=== PATIENT | male | born 1970 | race Caucasian/White ===

== ENCOUNTER 2016-07-28 18:38 | Inpatient (IN) | payer BC ==
--- NOTE | ~2016-07-28 | HP ---
History And Physical [place] [id number] [facility] [place]. [address] NAME: HAILEY RAMOS : 74 STATUS : ADM IN [facility]#: [id number] AGE: 45 ADM/REG DATE : 07/28/16 MR#: [id number] REPORT SERV DATE: 07/29/16 DICTATED BY: FRANCISCO BAR DATE: 07/29/16 REPORT STATUS : Draft TRANSCRIBED BY: MODL DATE: 07/29/16 DATE OF ADMISSION: 07/28/2016 REASON FOR ADMISSION: Acute stroke. CHIEF COMPLAINT: Left hand weakness and numbness. HISTORY OF PRESENT ILLNESS: This is a 45-year-old gentleman who was essentially previously healthy other than obesity who presented to us after having an acute onset of left upper extremity weakness. He called his physician who resides in [place] for further advice and presented to the emergency room. He is from out [facility] and currently here with his children's tournament. By the time he was seen in the ER, he had mildly elevated blood pressure, findings of acute stroke with no intracranial hemorrhage. He was given tPA and is now currently in the CVICU. Fortunately, most of his deficits has already improved other than some numbness in the left hand. Otherwise, no further complaints, no chest pain. PAST MEDICAL HISTORY: Diabetes, dyslipidemia, and hypertension. MEDICATIONS: None. ALLERGIES: NO KNOWN DRUG ALLERGIES. SOCIAL HISTORY: The patient does not smoke, drink, or do any illicit drug use. 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 Has a very supportive family. FAMILY HISTORY: Other family members with hypertension and prostate cancer. No history of stroke. REVIEW OF SYSTEMS: All pertinent review of systems is reviewed and is otherwise negative. PHYSICAL EXAMINATION: VITAL SIGNS: The patient is currently afebrile, heart rate 80s, respiratory rate normal, oxygen saturation 93% on room air, blood pressure currently 145 systolic. GENERAL: The patient is alert and oriented, no acute distress. HEENT: No carotid bruit, no JVD. NECK: Supple. PULMONARY EXAMINATION: Lungs are clear to auscultation bilaterally. CARDIAC: Regular rate, no murmurs. ABDOMEN EXAMINATION: Soft, nontender, nondistended. EXTREMITIES EXAMINATION: No cyanosis, good capillary refill, peripheral pulses noted in all extremities. NEUROLOGIC EXAMINATION: Everything is quite normal, there is no weakness in the upper extremities bilaterally, patient reports having numbness in the top one-half of his hand. No trapezius muscle weakness. Normal leg weak strength. History And Physical [address] [place]. [address] NAME: HAILEY RAMOS : 74 STATUS : ADM IN PAT#: [id number] AGE: 45 ADM/REG DATE : 07/28/16 MR#: [id number] REPORT SERV DATE: 07/29/16 DICTATED BY: FRANCISCO BAR DATE: 07/29/16 REPORT STATUS : Draft TRANSCRIBED BY: KENYA DATE: 07/29/16 LABORATORY EXAMINATION: White blood cell count 10.6. Good kidney function, cholesterol panel shows an HDL of 44, LDL 81, cholesterol 151, triglycerides 131. Normal liver function tests. Negative troponin. Normal TSH. Imaging: CT scan of the neck and brain showed no significant stenoses, no filling defect in the [place] of [place]. CT scan of the brain shows no intracranial bleeding. MRI of the brain is currently pending. ASSESSMENT AND PLAN: Mr. Ramos is a 45-year-old gentleman with a past medical history noted above, who presents with an acute stroke and is status post tPA. The patient is currently having improvement in his neurological symptoms. We checked a lipid profile which is actually not too significantly of concern; however, he has been started on a high dose Lipitor. We are controlling his blood pressure p.r.n. and also starting him on carvedilol. I spent some time discussing the need for having a heart healthy diet, he already has an appointment to get a polysomnogram, may benefit from a Holter monitor to ensure he does not have atrial fibrillation. Otherwise, we will conduct the standard post stroke orders such as PT, OT, speech therapy, rehabilitation. The patient is to continue ICU level of care over the next 24 hours. Goals of care: The patient is currently full code. HFQ/MODL Francisco Bar MD / [id number] CC: Francisco Bar MD
--- NOTE | ~2016-07-28 | CN ---
Consultation Report [facility] [address] [place]. [address] NAME: HAILEY RAMOS : 74 STATUS : ADM IN PAT#: [id number] AGE: 45 ADM/REG DATE : 07/28/16 MR#: [id number] REPORT SERV DATE: 07/28/16 DICTATED BY: DATE: REPORT STATUS : Draft TRANSCRIBED BY: MODL DATE: 07/28/16 NEUROLOGY CONSULTATION DATE OF CONSULTATION: 07/28/2016 REASON FOR CONSULT: Left upper extremity weakness, concern for acute stroke. HISTORY OF PRESENT ILLNESS: This is a 45-year-old male presented to [facility] secondary to acute onset of left upper extremity weakness with the patient's symptom mostly in the left arm, left hand. The patient reports that since the symptom onset, symptom has improved, however, it has not completely resolved. Also, complains of some numbness in the left upper extremity at the time of symptom onset. The patient's symptoms started at 1700 hours today. The patient otherwise denies similar symptoms in the past and denies any known previous medical problems. He does not take any medications at home. The patient denies any dysarthria, dysphagia, language difficulties, and denies any gait abnormality. Denies any lower extremity involvement of the symptom. The patient denies any visual difficulties. Denies any headache and denies any recent illness, fever, chills, nausea, vomiting, chest pain, or shortness of breath. PAST MEDICAL HISTORY: The patient denies any significant past medical history, specifically denies any history of hypertension, dyslipidemia, or diabetes. FAMILY HISTORY: Significant for prostate cancer. SOCIAL HISTORY: Denies tobacco, alcohol, or recreational drug usage. 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 ALLERGIES: THE PATIENT REPORTS NO KNOWN DRUG ALLERGIES AND DOES NOT TAKE ANY MEDICATIONS AT HOME. REVIEW OF SYSTEMS: Otherwise, negative except for those mentioned in the HPI. PHYSICAL EXAMINATION: VITAL SIGNS: At the time of evaluation, the patient was noted to have vital signs with T-max of 98.2, heart rate of 85, respirations of 20, and blood pressure of 161/111. GENERAL: The patient is a well developed, well nourished, in no acute distress. CARDIOVASCULAR: Regular rate and rhythm. No carotid bruits were otherwise auscultated. PULMONARY: Clear to auscultation bilaterally. NEUROLOGICAL EXAMINATION: Generally, the patient is alert and orientated to person, place, year, and month and follows simple and 2-step commands. No dysarthria or aphasia was otherwise noted at the time of evaluation. Intact registration, intact recall at the time Consultation Report [place] [id number] [place]. [address] NAME: HAILEY RAMOS : 74 STATUS : ADM IN PAT#: [id number] AGE: 45 ADM/REG DATE : 07/28/16 MR#: [id number] REPORT SERV DATE: 07/28/16 DICTATED BY: DATE: REPORT STATUS : Draft TRANSCRIBED BY: MODL DATE: 07/28/16 of evaluation. Intact attention span. Cranial nerves II through XII, pupils equal, round, and reactive to light. Extraocular eye movement was noted to be intact with intact peripheral vision. Symmetrical facial expression and sensation. Midline tongue. Normal palatal movement and symmetrical hearing. The patient demonstrated 5/5 bilateral upper extremity strength proximally with the patient noted to have 4/5 left upper extremity manager ambulatory strength and 5/5 right upper extremity manager ambulatory strength. Decreased fine motor movement especially in the fingers in the left upper extremity. Reports symmetrical sensation bilaterally. 5/5 bilateral lower extremity strength with the patient reports symmetrical sensation in bilateral lower extremity. Normal [id number] examination without ataxia. At the time of evaluation, deep tendon reflex was 2+ throughout. LABORATORY STUDIES: At the time of evaluation demonstrated sodium 143, potassium 3.9, chloride of 106, bicarb of 27, BUN of 11, creatinine of 1.05, glucose of 98, calcium of 8.4. White blood cell count of 10.6, hemoglobin of 15.9, hematocrit of 44.9, and platelet count of 206. CT scan of the head, otherwise demonstrated no acute process. With the CT angiogram of the head demonstrated no perfusion deficits. No proximal vessel clot since CTA of the neck otherwise demonstrated no significant blockage. IMPRESSION: Left upper extremity weakness and concern for possible stroke with improving symptom, but not back to baseline. The patient's NIH Stroke Scale is 0, but still was noted to have significant left upper extremity hand movement difficulties with the patient's symptom onset at 1700 hours. Denies similar symptoms in the past. TPA was given at 1938 hours. We will admit to ICU for monitoring as per protocol MRI of the brain and stroke workup. We will start the patient on atorvastatin 80 mg p.o. q.h.s. RECOMMENDATION: 1. Admit to ICU. 2. Atorvastatin 80 mg p.o. q.h.s. 3. PT/OT. 4. MRI of the brain without contrast. 5. Echocardiogram. 6. Fasting lipid panel and hemoglobin A1c with morning labs. 7. We will keep systolic blood pressure under 185 mmHg. [facility]/MODL Negrito Herrera MD / [id number]
--- NOTE | ~2016-07-28 | DS ---
Discharge Summary [facility] [address] [place]. [address] NAME: HAILEY RAMOS : 74 STATUS : DIS IN PAT#: [id number] AGE: 45 ADM/REG DATE : 07/28/16 MR#: [id number] REPORT SERV DATE: 07/30/16 DICTATED BY: FRANCISCO CEJA DATE: 07/29/16 REPORT STATUS : Draft TRANSCRIBED BY: KENYA DATE: 07/29/16 ADMISSION DATE: 07/28/2016 DISCHARGE DATE: 07/29/2016 ADMISSION DIAGNOSES: Acute stroke. DISCHARGE DIAGNOSES: Acute stroke, hypertension, obesity. HOSPITAL COURSE: The patient was admitted yesterday to the intensive care unit with an acute stroke, he has received tPA and within several hours had resolution of his left upper extremity weakness. At this moment in time, the patient's status is back to normal. We conducted an evaluation of his lipid profile which is noted on the history which is not significantly of concern. His troponins were negative, TSH was normal. His hemoglobin A1c was 5.4. Urine drug test was negative. No signs of infection. At this moment of time, he has completed 24 hours of neuro checks in the intensive care unit, he is to follow up with his primary care physician in [place] for which he is transitioning to a new one. Myself including the neurologists have spoken to him about the need for hypertension control for which we are starting Coreg. Other areas of concern are possible sleep apnea for which he already has an appointment to get a sleep study and also diet and exercise and weight loss is of need. DISPOSITION: The patient is being discharged home, he has a drive to [place], talked about safety and frequent stops to avoid DVTs, to give him some time to recover, we have given him a work release. FOLLOWUP: The patient is to follow up with his primary care physician, testing was noted above. The patient's MRI of the brain for the record was normal. No evidence of any chronic ischemic changes either. MEGAN/KENYA Francisco Ceja MD / [id number] CC: Francisco Ceja MD
[2016-07-28 18:52] LABS: BASOPHILS 0.2 %; BASOPHILS ABSOLUTE 0.02 10/3/uL (0.0-0.16); EOSINOPHILS 3.6 %; EOSINOPHILS ABSOLUTE 0.38 10/3/uL (0.0-0.53); ER CBC TAT 0 Hrs 05 Mins; HEMATOCRIT 44.9 % (40.0-51.0); HEMOGLOBIN 15.9 g/dL (13.6-17.8); IMMATURE GRANULOCYTES 1.3 %; IMMATURE GRANULOCYTES ABSOLUTE 0.14 10/3/uL (0.0-0.11); LYMPHOCYTES 24.2 %; LYMPHOCYTES ABSOLUTE 2.57 10/3/uL (0.67-4.30); MEAN CORPUS HGB CONC 35.4 g/dL (32.0-36.0); MEAN CORPUSCULAR HEMOGLOB 29.2 pg (26.0-34.0); MEAN CORPUSCULAR VOLUME 82.4 fL (80-100); MEAN PLATELET VOLUME 10.3 fL (9.2-13.0); MONOCYTES 7.6 %; MONOCYTES ABSOLUTE 0.81 10/3/uL (0.21-1.20); NEUTROPHILS 63.1 %; NEUTROPHILS ABSOLUTE 6.68 10/3/uL (2.02-8.40); PLATELET COUNT 206 10/3/uL (150-400); RBC DISTRIBUTION WIDTH 13.7 % (12.0-16.0); RED CELL COUNT 5.45 10/6/uL (4.7-6.1); WHITE BLOOD CELLS 10.6 10/3/uL (4.5-10.5)
[2016-07-28 18:53] LABS: MANUAL DIFF NO %
[2016-07-28 18:59] LABS: PARTIAL THROMBO TIME 24.2 SEC (22.5-37.2); PROTIME (NOT ORD) 12.9 SEC (12.0-14.5)
[2016-07-28 19:10] LABS: A/G RATIO 1.2 (0.7-1.9); ALBUMIN 4.1 G/DL (3.5-5.0); ALKALINE PHOSPHATASE 66 U/L (45-117); BUN (BLOOD UREA NITROGEN) 11 MG/DL (6-23); CALCIUM, SERUM 8.4 MG/DL (8.5-10.4); CHLORIDE, SERUM 106 MMOL/L (96-112); CO2 (CARBON DIOXIDE) 27 MMOL/L (24-34); CREATININE 1.05 MG/DL (0.70-1.30); GFR AFRICAN AMERICAN 100 ML/MIN (>=60); GFR NON AFRICAN AMERICAN 87 ML/MIN (>=60); GLOBULIN 3.3 G/DL (2.5-4.1); GLUCOSE, SERUM 98 MG/DL (60-99); POTASSIUM, SERUM 3.9 MMOL/L (3.5-5.3); SGOT(AST) 32 U/L (5-40); SGPT(ALT) 63 U/L (5-65); SODIUM, SERUM 143 MMOL/L (135-148); TOTAL BILIRUBIN 0.6 MG/DL (0-1.2); TOTAL PROTEIN 7.4 G/DL (6.0-8.5); TROPONIN I <0.02 NG/ML (<0.05)
[2016-07-28] MEDS ORDERED: *DENIES (19:39)
[2016-07-28 23:50] LABS: CHOL/HDL RATIO(NOT ORDER) 3.4 (0-5); CHOLESTEROL 151 MG/DL (< 200); CPK 163 U/L (0-200); HDL CHOLESTEROL 44 MG/DL (> 39); LDL CHOLESTEROL 81 MG/DL (< 130); NON-HDL CHOLESTEROL 107 MG/DL (< 160); TRIGLYCERIDE 131 MG/DL (< 150); TROPONIN I <0.02 NG/ML (<0.05)
[2016-07-28 23:59] LABS: CK-MB 1.1 NG/ML; FOLATE 7.8 NG/ML (>5.2)
[2016-07-29 06:31] LABS: CPK 155 U/L (0-200); TROPONIN I <0.02 NG/ML (<0.05)
[2016-07-29 06:32] LABS: CK-MB 1.4 NG/ML
[2016-07-29 07:11] LABS: ASCORBIC ACID (UR NOT ORDER) NEG (NEG); BILIRUBIN, URINE NEGATIVE (NEG); KETONE, URINE NEGATIVE (NEG); LEUKOCYTE ESTERASE(NOT OR NEG (NEG); WBC (NOT ORDERED) (RFLEX) < 1 (0-5)
[2016-07-29 07:23] LABS: AMPHETAMINES (NOT ORD) NEG (NEG); BARBITURATES (NOT ORDERED NEG (NEG); BENZODIAZEPINES (NOT ORD) NEG (NEG); CANNABINOIDS (THC) NEG (NEG); COCAINE (NOT ORDERED) NEG (NEG); OPIATES NEG (NEG); PHENCYCLIDINE(PCP) NEG (NEG)
[2016-07-29 07:24] LABS: TRICYCLICS NEG (NEG)
[2016-07-29 14:27] LABS: CK-MB 1.1 NG/ML; CPK 155 U/L (0-200); TROPONIN I <0.02 NG/ML (<0.05)
[2016-07-29] MEDS ORDERED: LIPITOR80 MG PO (14:39)
[2016-07-29] MEDS ORDERED: ASA5GR PO (14:39)
[2016-07-29] MEDS ORDERED: COREG6 PO (18:28)
== END 2016-07-29 20:00 | disposition home or self-care (01) | DRG 63 ==
LOC: ER 18:38 → CVICU 20:02
PROVIDERS: Emergency Medicine; Internal Medicine Critical Care Medicine
DX: I63.9 Cerebral infarction, unspecified (principal); I10 Essential (primary) hypertension; E66.9 Obesity, unspecified; E11.9 Type 2 diabetes mellitus without complications; E78.5 Hyperlipidemia, unspecified; Z82.49 Family history of ischemic heart disease and other diseases of the circulatory system; Z80.42 Family history of malignant neoplasm of prostate
CPT/HCPCS: 36415; 70450; 70496; 70498; 70551; 71010; 80053; 80061; 80305; 81001; 82550; 82553; 82607; 82746; 82962; 83036; 84443; 84484; 85025; 85610; 85730; 86850; 86900; 86901; 87641; 93005; 99291; A9270-GY; J2997; Q9967